=== PATIENT | female | born 1955 | race Caucasian/White ===

== ENCOUNTER 2019-06-25 14:18 | Inpatient (IN) | payer BC, OTHER ==
[~2019-06-25] VITALS: Ht 172.7 cm; Wt 152.1 kg
[2019-06-25] MEDS ORDERED: hydrALAzine 20 MG/ML, 1ML IVPush PRN (15:00)
[2019-06-25] MEDS ORDERED: LABETALOL 5MG/ML, 20ML IVPush PRN (15:00)
[2019-06-25] MEDS ORDERED: PLEASE ENTER ALLERGIES MC SCH (15:00)
[2019-06-25] MEDS ORDERED: NITROGLYCERIN 0.4 MG BOTTLE (25 TABS) SL PRN (15:00)
[2019-06-25] MEDS: HEPARIN 25,000 UNITS/250ML PMX 250 ML IV PRN (15:20)
[2019-06-25 15:25] LABS: BASOPHILS # (AUTO) 0.03 x10^3/uL (0-0.1); BASOPHILS % (AUTO) 0 % (0-1); EOSINOPHILS # (AUTO) 0.06 x10^3/uL (0-0.4); EOSINOPHILS % (AUTO) 1 % (1-7); LYMPHOCYTES # (AUTO) 1.68 x10^3/uL (1-3.4); LYMPHOCYTES % (AUTO) 23 % (22-44); MD NO; MEAN CORPUSCULAR HGB CONC 32.5 g/dL (32.4-35.8); MEAN CORPUSCULAR VOLUME 98.6 fL (80-100); MEAN PLATELET VOLUME 10.1 fL (7.4-10.4); MONOCYTES # (AUTO) 0.58 x10^3/uL (0.2-0.8); MONOCYTES % (AUTO) 8 % (2-9); NEUTROPHILS # (AUTO) 5.06 x10^3/uL (1.8-6.8); NEUTROPHILS % (AUTO) 68 % (42-75); PLATELET COUNT 163 x10^3/uL (130-400); RED BLOOD COUNT 4.07 x10^6/uL (3.82-5.3); RED CELL DISTRIBUTION WIDTH 15.5 % (9.6-15.2)
[2019-06-25] MEDS ORDERED: HEPARIN 5,000 UNITS/ML, 1ML IV PRN (15:30)
[2019-06-25 15:32] LABS: ALBUMIN 3.3 g/dL (3.4-5.0); ANION GAP 4 mmol/L (5-15); CALCIUM 9.2 mg/dL (8.5-10.1); CHLORIDE 114 mmol/L (98-107)
[2019-06-25 15:38] LABS: ALANINE AMINOTRANSFERASE 19 U/L (12-78); ALKALINE PHOSPHATASE 55 U/L (45-117); BILIRUBIN,TOTAL 0.5 mg/dL (0.2-1.0); CHOL/HDL RATIO 3.5; CHOLESTEROL, TOTAL 162 mg/dL (140-239); CREATININE 1.53 mg/dL (0.55-1.02); HDL CHOL % 28 % (28-40); HDL CHOLESTEROL (DIRECT) 46 mg/dL (40-60); LDL CHOLESTEROL,CALCULATED 98 mg/dL (54-169); LDL/HDL RATIO 2.1 (0.5-3.0); TRIGLYCERIDES 89 mg/dL (50-200); VLDL CHOLESTEROL 18 mg/dL (0-25)
[2019-06-25] MEDS ORDERED: FLEC150T PO (18:00)
[2019-06-25] MEDS ORDERED: LISI-420 PO (18:00)
[2019-06-25] MEDS ORDERED: METO50TA6 PO (18:00)
[2019-06-25] MEDS ORDERED: ALLO100T30 PO (18:00)
[2019-06-25] MEDS ORDERED: OMEP20CA20 PO (18:00)
[2019-06-25] MEDS ORDERED: BACL20TA PO (18:00)
[2019-06-25] MEDS ORDERED: OXYB15TA18 PO (18:00)
[2019-06-25] MEDS ORDERED: CRAN200C2 PO (18:02)
[2019-06-25] MEDS ORDERED: CHOL10003 PO (18:02)
[2019-06-25] MEDS: ONDANSETRON 2MG/ML, 2ML IVPush PRN (20:44)
[2019-06-25] MEDS: ATORVASTATIN 40 MG TABLET PO SCH (20:44)
[2019-06-25 20:57] VITALS: BP_SYST 108; BP_SYST 126; BP_SYST 137; BP_DIAS 75; BP_DIAS 84; BP_DIAS 86
[2019-06-26] MEDS: HEPARIN 25,000 UNITS/250ML PMX 250 ML IV PRN (00:51)
[2019-06-26 01:01] VITALS: BP 119/80
[2019-06-26 01:33] LABS: ALANINE AMINOTRANSFERASE 18 U/L (12-78); ANION GAP 6 mmol/L (5-15); CALCIUM 9.3 mg/dL (8.5-10.1); CHLORIDE 114 mmol/L (98-107); CREATININE 1.33 mg/dL (0.55-1.02)
[2019-06-26 01:37] LABS: ALKALINE PHOSPHATASE 50 U/L (45-117); BILIRUBIN,TOTAL 0.5 mg/dL (0.2-1.0); TOTAL PROTEIN 6.6 g/dL (6.4-8.2); TROPONIN I 0.624 ng/mL (0.000-0.045)
[2019-06-26] MEDS: ONDANSETRON 2MG/ML, 2ML IVPush PRN (01:51)
[2019-06-26] MEDS ORDERED: ASPIRIN 325 MG TABLET EC PO SCH (06:00)
[2019-06-26 07:26] VITALS: BP 114/77
[2019-06-26] MEDS: SODIUM CHLORIDE 0.9% 1,000 ML IV SCH (07:30)
[2019-06-26 07:45] LABS: BASOPHILS # (AUTO) 0.04 x10^3/uL (0-0.1); BASOPHILS % (AUTO) 1 % (0-1); EOSINOPHILS # (AUTO) 0.15 x10^3/uL (0-0.4); EOSINOPHILS % (AUTO) 2 % (1-7); LYMPHOCYTES # (AUTO) 1.86 x10^3/uL (1-3.4); LYMPHOCYTES % (AUTO) 29 % (22-44); MD NO; MEAN CORPUSCULAR HEMOGLOBIN 32.1 pg (27.0-34.8); MEAN CORPUSCULAR HGB CONC 32.7 g/dL (32.4-35.8); MEAN CORPUSCULAR VOLUME 98.2 fL (80-100); MEAN PLATELET VOLUME 10.5 fL (7.4-10.4); MONOCYTES # (AUTO) 0.58 x10^3/uL (0.2-0.8); MONOCYTES % (AUTO) 9 % (2-9); NEUTROPHILS # (AUTO) 3.86 x10^3/uL (1.8-6.8); NEUTROPHILS % (AUTO) 60 % (42-75); PLATELET COUNT 158 x10^3/uL (130-400); RED BLOOD COUNT 4.14 x10^6/uL (3.82-5.3)
[2019-06-26] MEDS: ASPIRIN 81 MG TABLET CHEW PO SCH (07:58)
[2019-06-26] MEDS: METOPROLOL TARTRATE 25 MG TAB PO SCH ×2 (07:58→17:32)
[2019-06-26] MEDS: FLECAINIDE 50MG TABLET PO SCH ×2 (07:58→20:32)
[2019-06-26] MEDS ORDERED: SODIUM CHLORIDE 0.9% 1,000 ML IV SCH (08:54)
[2019-06-26 09:28] LABS: TROPONIN I 0.285 ng/mL (0.000-0.045)
[2019-06-26] MEDS ORDERED: BIVALIRUDIN 250 MG ONE (11:25)
[2019-06-26] MEDS ORDERED: FENTANYL PF 100 MCG/2ML ONE (11:25)
[2019-06-26] MEDS ORDERED: VERAPAMIL 2.5 MG/ML, 2ML ONE (11:25)
[2019-06-26] MEDS ORDERED: LIDOCAINE-MPF 1%, 5ML ONE (11:25)
[2019-06-26] MEDS ORDERED: MIDAZOLAM 1 MG/ML, 5ML ONE (11:25)
[2019-06-26] MEDS ORDERED: TICAGRELOR 90 MG TABLET ONE (11:25)
[2019-06-26] MEDS ORDERED: ONDANSETRON 2MG/ML, 2ML ONE (12:19)
[2019-06-26 13:18] VITALS: BP 113/78
[2019-06-26] MEDS ORDERED: BACLOFEN 10 MG TABLET PO PRN (18:00)
[2019-06-26 18:54] VITALS: BP 97/67
[2019-06-26 20:31] VITALS: BP 111/75
[2019-06-26] MEDS: ATORVASTATIN 40 MG TABLET PO SCH (20:32)
[2019-06-26 20:35] VITALS: BP 120/84
[2019-06-27] VITALS (7 sets, daily range): BP systolic 117–139; BP diastolic 79–93
[2019-06-27] MEDS: SODIUM CHLORIDE 0.9% 1,000 ML IV SCH ×2 (00:14→09:37)
[2019-06-27] MEDS: METOPROLOL TARTRATE 25 MG TAB PO SCH (05:13)
[2019-06-27 05:23] LABS: BASOPHILS # (AUTO) 0.03 x10^3/uL (0-0.1); BASOPHILS % (AUTO) 0 % (0-1); EOSINOPHILS # (AUTO) 0.19 x10^3/uL (0-0.4); EOSINOPHILS % (AUTO) 2 % (1-7); LYMPHOCYTES # (AUTO) 1.89 x10^3/uL (1-3.4); LYMPHOCYTES % (AUTO) 23 % (22-44); MD NO; MEAN CORPUSCULAR HEMOGLOBIN 32.1 pg (27.0-34.8); MEAN CORPUSCULAR HGB CONC 32.7 g/dL (32.4-35.8); MONOCYTES # (AUTO) 0.92 x10^3/uL (0.2-0.8); MONOCYTES % (AUTO) 11 % (2-9); NEUTROPHILS # (AUTO) 5.11 x10^3/uL (1.8-6.8); NEUTROPHILS % (AUTO) 63 % (42-75); PLATELET COUNT 151 x10^3/uL (130-400); RED BLOOD COUNT 3.71 x10^6/uL (3.82-5.3); RED CELL DISTRIBUTION WIDTH 14.9 % (9.6-15.2)
[2019-06-27 05:24] LABS: ANION GAP 4 mmol/L (5-15); CALCIUM 8.6 mg/dL (8.5-10.1); CHLORIDE 114 mmol/L (98-107); CREATININE 1.16 mg/dL (0.55-1.02)
[2019-06-27] MEDS ORDERED: ACETAMINOPHEN 325 MG TABLET PO PRN (05:30)
[2019-06-27] MEDS ORDERED: METO25TA35 PO (08:11)
[2019-06-27] MEDS ORDERED: ONDA4TAB7 PO (08:16)
[2019-06-27] MEDS: ASPIRIN 81 MG TABLET CHEW PO SCH (08:19)
[2019-06-27] MEDS: FLECAINIDE 50MG TABLET PO SCH (08:19)
[2019-06-27] MEDS: ONDANSETRON 2MG/ML, 2ML IVPush PRN (08:25)
== END 2019-06-27 12:47 | disposition home or self-care (01) | DRG 287 ==
LOC: ED 14:59 → EDIP 15:00 → ED 15:23 → 5SO 15:55
PROVIDERS: ADMIT Internal Medicine; ATTEND Internal Medicine Infectious Disease
PROC: 4A023N7 Measurement of Cardiac Sampling and Pressure, Left Heart, Percutaneous Approach (ICD-10-PCS; principal; 2019-06-26)
PROC: B2111ZZ Fluoroscopy of Multiple Coronary Arteries using Low Osmolar Contrast (ICD-10-PCS; 2019-06-26)
DX: I95.2 Hypotension due to drugs (principal); Z68.43 Body mass index [BMI] 50.0-59.9, adult; N17.9 Acute kidney failure, unspecified; N18.3 Chronic kidney disease, stage 3 (moderate); E66.01 Morbid (severe) obesity due to excess calories; E78.5 Hyperlipidemia, unspecified; I12.9 Hypertensive chronic kidney disease with stage 1 through stage 4 chronic kidney disease, or unspecified chronic kidney disease; I25.2 Old myocardial infarction; Z82.49 Family history of ischemic heart disease and other diseases of the circulatory system; Z87.891 Personal history of nicotine dependence; Z86.79 Personal history of other diseases of the circulatory system; Z88.1 Allergy status to other antibiotic agents; Z88.3 Allergy status to other anti-infective agents; Z88.5 Allergy status to narcotic agent; Z71.6 Tobacco abuse counseling; T48.295A Adverse effect of other drugs acting on muscles, initial encounter; Y92.098 Other place in other non-institutional residence as the place of occurrence of the external cause
CPT/HCPCS: 36415; 80048; 80053; 80061; 84443; 84484; 85025; 85379; 85520; 93005; 93306; 93458; 93880; 93970; 99156; 99285; C1769; C1894; G0378; J0583; J1644; J2250; J2405; J3010; J7030; Q9967

== ENCOUNTER → 2019-09-11 | Outpatient (CLI) | payer BC ==
[~2019-09-11] MED LIST: ALLO100T30 PO; BACL20TA PO; CHOL10003 PO; CRAN200C2 PO; FLEC150T PO; LISI-420 PO; METO25TA35 PO; METO50TA6 PO; OMEP20CA20 PO; ONDA4TAB7 PO; OXYB-39 PO; OXYB15TA18 PO; TRAM50TA2 PO
== END | disposition home or self-care (01) ==
LOC: STAR 12:32
PROVIDERS: ATTEND Student in an Organized Health Care Education/Training Program
DX: Z01.818 Encounter for other preprocedural examination (principal); N28.89 Other specified disorders of kidney and ureter; I21.09 ST elevation (STEMI) myocardial infarction involving other coronary artery of anterior wall; R00.1 Bradycardia, unspecified
CPT/HCPCS: 93005

== ENCOUNTER 2019-09-16 08:57 | Day surgery (SDC) | payer BC ==
[~2019-09-16] VITALS: Ht 172.7 cm; Wt 141.6 kg
[2019-09-16] MEDS ORDERED: LACTATED RINGERS 1,000 ML IV SCH (09:36)
[2019-09-16] MEDS ORDERED: OXYB5TAB10 PO (09:45)
[2019-09-16 09:46] VITALS: BP 126/95
[2019-09-16] MEDS ORDERED: FENTANYL PF 100 MCG/2ML ONE (09:52)
[2019-09-16] MEDS ORDERED: MIDAZOLAM 1 MG/ML, 2ML ONE (09:53)
[2019-09-16] MEDS ORDERED: CHLORHEXIDINE 15 ML UDC MM ONE (10:00)
[2019-09-16] MEDS ORDERED: NEOSTIGMINE 1 MG/ML, 10ML ONE (11:25)
[2019-09-16] MEDS ORDERED: GLYCOPYRROLATE 0.2MG/1ML, 5ML ONE (11:25)
[2019-09-16] MEDS ORDERED: DEXAMETHASONE 4 MG/ML, 1ML ONE (11:25)
[2019-09-16] MEDS ORDERED: CEFAZOLIN 1,000 MG ONE (11:25)
[2019-09-16] MEDS ORDERED: SUCCINYLCHOLINE 20 MG/ML, 10ML ONE (11:25)
[2019-09-16] MEDS ORDERED: PROPOFOL 10 MG/ML, 20ML ONE (11:25)
[2019-09-16] MEDS ORDERED: ROCURONIUM 10MG/ML,5ML ONE (11:25)
[2019-09-16] MEDS ORDERED: ONDANSETRON 2MG/ML, 2ML ONE ×2 (11:25→12:31)
[2019-09-16] MEDS ORDERED: ALBUTEROL SULFATE 2.5 MG/3 ML NPPB PRN (11:30)
[2019-09-16] MEDS ORDERED: HYDROmorphone 1 MG/ML, 1ML INJ IVPush PRN (11:30)
[2019-09-16] MEDS ORDERED: FENTANYL PF 100 MCG/2ML IV PRN (11:30)
[2019-09-16] MEDS ORDERED: PROMETHAZINE 25 MG/ML, 1ML IV PRN (11:30)
[2019-09-16] MEDS ORDERED: ACETAMINOPHEN 325 MG TABLET PO PRN (11:30)
[2019-09-16] MEDS ORDERED: MEPERIDINE/PF 25MG/0.5ML IVPush PRN (11:30)
[2019-09-16] MEDS ORDERED: DIAZEPAM 5 MG/ML, 2ML IVPush PRN (11:30)
[2019-09-16] MEDS ORDERED: hydrALAzine 20 MG/ML, 1ML IV PRN (11:30)
[2019-09-16] MEDS ORDERED: LABETALOL 5MG/ML, 20ML IV PRN (11:30)
[2019-09-16] MEDS ORDERED: OMNIPAQUE 350 MG/ML, 50 ML BOTTLE ONE (11:37)
[2019-09-16] MEDS ORDERED: ONDANSETRON 2MG/ML, 2ML IVPush ONE (12:30)
[2019-09-16] MEDS ORDERED: PHENAZOPYRIDINE 200 MG TABLET ONE (13:11)
[2019-09-16] MEDS: OXYcodone 5 MG/5 ML ORAL.SOL UDC PO PRN ×2 (13:19→14:10)
[2019-09-16] MEDS ORDERED: PHENAZOPYRIDINE 200 MG TABLET PO ONE (13:30)
[2019-09-16] MEDS ORDERED: OXYBUTYNIN CHLORIDE 5 MG TABLET PO ONE (13:30)
== END 2019-09-16 15:25 | disposition home or self-care (01) ==
LOC: OUT 08:57
PROVIDERS: ATTEND Student in an Organized Health Care Education/Training Program
DX: N28.89 Other specified disorders of kidney and ureter (principal); C64.9 Malignant neoplasm of unspecified kidney, except renal pelvis; E66.01 Morbid (severe) obesity due to excess calories; Z68.42 Body mass index [BMI] 45.0-49.9, adult; Z79.899 Other long term (current) drug therapy; Z87.442 Personal history of urinary calculi; Z88.8 Allergy status to other drugs, medicaments and biological substances; Z98.84 Bariatric surgery status; Z98.890 Other specified postprocedural states; Z82.49 Family history of ischemic heart disease and other diseases of the circulatory system; Z83.3 Family history of diabetes mellitus; Z80.52 Family history of malignant neoplasm of bladder; Z80.51 Family history of malignant neoplasm of kidney
CPT/HCPCS: 52351; 74420; C1769; J0690; J1100; J2250; J2405; J2704; J3010; J7120; Q9967; 36415; 87635; J2710; J0330